=== PATIENT | female | born 1965 | race Caucasian/White ===

== ENCOUNTER → 2019-10-21 15:36 | Outpatient (CLI) | payer OTHER, SELFPAY ==
--- NOTE | ~2019-10-21 | CT_ITS ---
EXAMINATION: CT abdomen pelvis wo con EXAM DATE: 10/21/2019 15:54 INDICATION: Panniculitis. History cholecystectomy. TECHNIQUE: Spiral CT of the abdomen and pelvis was performed without contrast. Axial, coronal and s agittal images were reviewed. The dose-length product (DLP) for this examination was 1128.14 mGy-cm. The exposure was tailored according to patient size (auto mA exposure control), and iterative recon struction (ASIR) was used as additional dose reduction technique. There is no prior study for compar allyson. FINDINGS: The liver, spleen, adrenal glands and pancreas are unremarkable. There are cholecystectomy clips. There is no nephrolithiasis or hydronephrosis. The uterus is unremarkable. The bladder i s unremarkable. There is no mesenteric, retroperitoneal or pelvic lymphadenopathy. The appendix is normal. There are 2 duodenal diverticula measuring 2 and 3 cm. There is expected am ount of colonic stool. No free intraperitoneal gas. The heart is normal in size. There are no pe ricardial or pleural effusions. The lung bases are unremarkable. The bones are unremarkable. IMPRESSION: 1. No acute intra-abdominal findings. 2. Duodenal diverticula. Reviewed, dictated and finalized at location A. L ADMINISTRATIVE ASSISTANT
== END ==
PROVIDERS: Visit Provider Surgery Plastic and Reconstructive Surgery
DX: M79.3 Panniculitis, unspecified (principal); K57.10 Diverticulosis of small intestine without perforation or abscess without bleeding
CPT/HCPCS: 74176

== ENCOUNTER 2020-01-19 00:07 | Outpatient (CLI) | payer OTHER, SELFPAY ==
[2020-01-19 17:43] LABS: SARS-CoV-2 RNA PCR Negative
== END 2020-01-19 00:08 | disposition home or self-care (01) ==
LOC: ANHCOVIDDT 00:07
PROVIDERS: Visit Provider Surgery Plastic and Reconstructive Surgery
DX: Z01.818 Encounter for other preprocedural examination (principal); Z11.59 Encounter for screening for other viral diseases
CPT/HCPCS: 87635; C9803; U0003

== ENCOUNTER 2020-01-19 09:10 | Outpatient (CLI) | payer SELFPAY ==
--- NOTE | 2020-01-19 09:12 | ECG_ITS ---
Measurements Intervals [place] Rate: 55 P: 16 NV: 192 QRS: -8 QRSD: 92 T: 25 QT: 442 QTc: 425 Interpretive Statements SINUS BRADYCARDIA POOR R WAVE PROGRESSION, ANTERIOR LEADS BORDERLINE ST-T WAVE ABNORMALITY- ANTERIOR LEADS BORDERLINE ECG Electronically Signed On 01-19-2020 9:58:11 CDT by Nael Faustin D.O.
== END 2020-01-19 09:11 | disposition home or self-care (01) ==
LOC: ANHSURGERY 09:12
PROVIDERS: PCP Family Medicine; Visit Provider Surgery Plastic and Reconstructive Surgery
DX: I10 Essential (primary) hypertension (principal)
CPT/HCPCS: 93005

== ENCOUNTER 2020-01-21 00:46 | Day surgery (SDC) | payer OTHER, SELFPAY ==
[2020-01-07 13:21] VITALS: BMI 38.0
[2020-01-21] VITALS (17 sets, daily range): BP systolic 116–159; BP diastolic 67–89; PULSE 60–80; RESP 10–20; TEMP 36.2–37.1; O2SAT 86–100
--- NOTE | 2020-01-21 06:48 | WPDHPUPDATE1 ---
History and Physical Update Update Date/Time: 01/21/20 06:48 History and Physical has been reviewed, including an updated exam of the patient. There are NO changes in the patient's condition. Risks, benefits, and alternatives have been discussed and questions answered. Patient agrees to proceed with procedure.
--- NOTE | 2020-01-21 06:56 | PM.PROC ---
Procedure Note - Detailed Date of procedure: 01/21/20 Pre-op diagnosis: Panniculitis Post-op diagnosis: same Procedure performed: Panniculectomy Description of procedure: She was marked in the preoperative holding area with her verification. We discussed asymmetry she has. Limitations of the procedure. That this is a functional not a cosmetic surgery. Went over the risks, benefits, alternatives again. Answered all of her questions. She would like proceed. She was taken to the operating room placed supine on the operating room table. Anesthesia provided by anesthesiology and prepped and draped in a standard sterile fashion. Surgical time-out was taken. Stab incisions were made and used a tumescent solution. Once adequate time for hemostasis a 10 blade used to make the lower incision. I completed a wedge resection of the lower abdominal tissue without difficulty. Copious irrigated with saline solution and verified strict hemostasis. No hernias identified. I did place bilateral 19 Yaw drains. I closed in many layers to obliterate space using 2-0 Vicryl followed by 3-0 strata fix and fredy. Dressings were placed. She was woken and taken to the PACU without difficulty. All instrument sponge counts were correct at the end of the case. Anesthesia: GLMA Surgeon: Kee Mejia MD Estimated blood loss (mL): 20 Drains: Yes (Bilateral 10 Yaw) Pathology: none sent Complications: No immediate complications Condition: stable Disposition: PACU
[2020-01-21] MEDS: LACTATED RINGERS 1,000 ML 30 ML IV CONT (07:00)
--- NOTE | 2020-01-21 07:01 | P.PNAN_ITS ---
Anes - Initial Pre Proc Eval Procedure: Operation Date: 01/21/20 07:30 Proposed Procedures p Panniculectomy - Kee Mejia MD Date/Time: 01/21/20 07:01 Surgeon: Kee Mejia MD Pre Op Diagnosis: Panniculitis Patient Data Age: 54 Gender: F Height: 5 ft 9 in Weight: 116.8 kg Allergies Allergy/AdvReac Type Severity Reaction Status Date / Time amoxicillin Allergy Mild Rash Verified 01/07/20 13:18 Home Medications Medication Instructions Recorded Confirmed Type docusate sodium 100 mg capsule 100 mg PO DAILY #14 cap 01/03/20 Rx ondansetron HCl 4 mg tablet 4 mg PO Q8H #28 tablet 01/03/20 Rx oxycodone-acetaminophen 5 mg-325 1 tablet PO Q6H PRN #15 tablet 01/03/20 01/03/20 Rx mg tablet irbesartan 150 mg PO DAILY 01/07/20 01/07/20 History Patient hx anesthesia problems: none Family hx anesthesia problems: none [facility] Past Medical History Medical History (Updated 01/21/20 @ 07:01 by Edi Michaud MD) Anxiety Hypertension Surgical History Surgical History History of cholecystectomy 2003 History of tubal ligation 2005 Anes - Eval Final PreProcedure Day of Procedure 01/21/20 07:01 Patient weight: obese Heart: regular rate and rhythm Lungs: clear to auscultation Airway: Mallampati scale class II Neurological: alert and oriented Last oral intake: >/= 8 hours ASA classification: II Emergent: no Anesthetic plan: proceed Anesthesia type and monitoring: general ETT and standard monitoring Informed Consent: The patient's anesthetic plan and its attendant risks and benefits were discussed with the patient/family/POA. Questions were solicited and answers provided to the satisfaction of the patient/family/POA.
[2020-01-21 07:13] LABS: Urine Cotinine NEGATIVE
[2020-01-21] MEDS: SCOPOLAMINE 1.5 MG PATCH TRANSDERM (07:15)
[2020-01-21] MEDS: ceFAZolin 2 GM/D5W 50 ML 2 GM/50 ML BAG IVPB (07:20)
--- NOTE | 2020-01-21 10:27 | PC.NURSE ---
This patient, Layla Sagastume, was received from PACU on 01/21/20 at 1027. Patient/family oriented to unit policies and routines
[2020-01-21] MEDS: LACTATED RINGERS 1,000 ML 125 ML IV CONT (10:39)
[2020-01-21] MEDS: MORPHINE SULFATE 2 MG/ML INJ IV PUSH (10:43)
[2020-01-21] MEDS: carisoprodoL 350 MG TABLET PO ×2 (13:02→18:30)
[2020-01-21] MEDS: DOCUSATE SODIUM 100 MG CAPSULE PO (22:49)
[2020-01-21] MEDS: ENOXAPARIN 40 MG/0.4 ML SYRINGE SUB-Q (22:50)
[2020-01-22] MEDS: carisoprodoL 350 MG TABLET PO ×3 (00:30→12:10)
[2020-01-22 03:46] VITALS: BP 125/69; PULSE 58; RESP 20; TEMP 35.9; O2SAT 97
--- NOTE | 2020-01-22 08:09 | WPDANESPN ---
Anes - Prog Note Post-Op Date/Time: 01/22/20 08:09 Cardiovascular status: normal Respiratory status: normal Airway patency: baseline Mental status: baseline Post-Op hydration status: normal Vital Signs: Last Vital Signs Temp 35.9 C L 01/22/20 03:46 Pulse 58 L 01/22/20 03:46 Resp 20 01/22/20 03:46 BP 125/69 01/22/20 03:46 Pulse Ox 97 01/22/20 03:46 I/O: Intake & Output 01/21/20 01/22/20 01/22/20 23:59 07:59 15:59 Intake Total 1550 Output Total 615 610 Balance 935 -610 Post-procedural complaints: none Patient Feedback: Patient satisfied with anesthetic care.
--- NOTE | 2020-01-22 08:18 | WPDPN ---
Progress Note: A&P Assessment and Plan (1) Panniculitis: Code(s): M79.3 - Panniculitis, unspecified Status: Acute Assessment and Plan: She is doing very well after panniculectomy. Will discharge home. Follow up in 2 weeks. Today we had a lengthy conversation about the care. Wound a great detail and what monitor for. Made sure answered all of her questions to her satisfaction today. She understands we are always available even after discharge if she has any questions or concerns as well. Explained to her shortness of breath, chest pain, or other medical emergency proceed to the emergency room/dial 911. She understands the keep us updated with drain outputs and will call with any questions or concerns in the meantime. (2) History of weight loss: Code(s): Z87.898 - Personal history of other specified conditions Status: Acute (3) History of cholecystectomy: Code(s): Z90.49 - Acquired absence of other specified parts of digestive tract Status: Acute (4) Hypertension: Code(s): I10 - Essential (primary) hypertension Status: Acute (5) Anxiety: Code(s): F41.9 - Anxiety disorder, unspecified Status: Acute Review of Systems Review of Systems: All systems reviewed & are unremarkable except as noted in HPI and below Exam Narrative: Exam Narrative: Abdomen is healing well. There is no signs of infection. No hematoma. No seroma. Drains are already serosanguineous. No calf tenderness. Negative Homans. SCDs are not on. Const: General: comfortable, no acute distress, alert and awake; No acute distress Orientation/consciousness: oriented to person HENMT: Head: normal to inspection Ears: external ears normal General nose exam: Normal external nose present Face and sinus: normal facial exam Eyes: General: appearance normal, both eyes and all related structures Periorbital: periorbital findings normal Eyelids: eyelids normal Conjunctivae: conjunctivae normal Neck: Neck: normal visual inspection Chest: Chest palpation & inspection: normal inspection of the chest Resp: Effort & Inspection: normal respiratory effort and able to speak in complete sentences GI: Inspection: normal to inspection Neuro: General: oriented to person Psych: Appearance: grossly normal Mental Status: mental status grossly normal Objective Data Vital Signs Vital Signs: Vital Signs - 24 hr 01/21/20 09:20 01/21/20 09:30 01/21/20 09:45 Temperature 36.3 C L 36.2 C L Pulse Rate 80 76 77 Respiratory Rate 15 12 10 L Blood Pressure 146/86 H 153/89 H 138/87 Pulse Oximetry 95 99 95 01/21/20 10:00 01/21/20 10:16 01/21/20 10:30 Temperature Pulse Rate 69 69 Respiratory Rate 13 12 Blood Pressure 154/86 H 142/88 H Pulse Oximetry 95 95 86 L 01/21/20 10:37 01/21/20 10:45 01/21/20 11:00 Temperature 36.8 C Pulse Rate 69 67 67 Respiratory Rate 16 16 16 Blood Pressure 147/89 H 159/88 H 159/89 H Pulse Oximetry 94 86 L 100 01/21/20 11:30 01/21/20 12:00 01/21/20 13:00 Temperature Pulse Rate 70 72 60 Respiratory Rate 16 16 16 Blood Pressure 148/79 H 148/80 H 148/81 H Pulse Oximetry 92 86 L 94 01/21/20 14:00 01/21/20 16:15 01/21/20 18:38 Temperature 37.1 C 36.4 C L 36.4 C Pulse Rate 67 67 70 Respiratory Rate 16 18 20 Blood Pressure 147/83 H 130/83 134/88 Pulse Oximetry 98 93 97 01/21/20 23:00 01/22/20 03:46 Temperature 36.8 C 35.9 C L Pulse Rate 60 58 L Respiratory Rate 16 20 Blood Pressure 116/67 125/69 Pulse Oximetry 100 97 Intake/Output Intake/Output: Intake & Output 01/19/20 01/20/20 01/21/20 01/22/20 23:59 23:59 23:59 23:59 Intake Total 2020 Output Total 1015 610 Balance 1005 -610 Meds/Results Medications: Active Medications Generic Name Dose Route Start Last Admin Trade Name Freq PRN Reason Stop Dose Admin Carisoprodol 350 mg 01/21/20 12:00 01/22/20 05:55 Soma PO 350 mg Q6HR IWLMA Administration D
--- NOTE | 2020-01-22 08:21 | PM.DS ---
DS: Admitting Diagnosis Admitting Diagnosis Admitting Diagnosis: Panniculitis DS: Discharge Diagnosis Discharge Diagnosis (1) Panniculitis: Code(s): M79.3 - Panniculitis, unspecified Status: Acute Assessment and Plan: Will discharge home. Follow up in 2 weeks. Keep us updated with drain outputs. Call with any questions or concerns. (2) S/P panniculectomy: Code(s): Z98.890 - Other specified postprocedural states Status: Acute (3) Hypertension: Code(s): I10 - Essential (primary) hypertension Status: Acute (4) Anxiety: Code(s): F41.9 - Anxiety disorder, unspecified Status: Acute (5) History of weight loss: Code(s): Z87.898 - Personal history of other specified conditions Status: Acute (6) History of cholecystectomy: Code(s): Z90.49 - Acquired absence of other specified parts of digestive tract Status: Acute DS: Summary Time Spent with Patient Time attestation: Total time spent providing and/or coordinating discharge services: Exam Narrative: Exam Narrative: Abdomen is healing well. There is no signs of infection. No hematoma. No seroma. Drains are already serosanguineous. No calf tenderness. Negative Homans. SCDs are not on. Const: General: comfortable, no acute distress, alert and awake; No acute distress Orientation/consciousness: oriented to person HENMT: Head: normal to inspection Ears: external ears normal General nose exam: Normal external nose present Face and sinus: normal facial exam Eyes: General: appearance normal, both eyes and all related structures Periorbital: periorbital findings normal Eyelids: eyelids normal Conjunctivae: conjunctivae normal Neck: Neck: normal visual inspection Chest: Chest palpation & inspection: normal inspection of the chest Resp: Effort & Inspection: normal respiratory effort and able to speak in complete sentences GI: Inspection: normal to inspection Neuro: General: oriented to person Psych: Appearance: grossly normal Mental Status: mental status grossly normal Discharge Plan Discharge Patient Disposition: Home, Self-Care Discharge Instructions: Remove the Scopolamine patch that was placed behind your ear in 72 hours or less. Wash your hands after touching.POST OPERATIVE DISCHARGE INSTRUCTIONS FOR Panniculectomy KEE MEJIA M.D. [facility] [address] [place] [address] [address] for 24 hours after anesthesia and while you are taking pain medication. Take all prescribed medication as directed Diet as tolerated. No lifting or activity that raises blood pressure for 48 hours. Regular walking / ambulation. No showering until directed to. Once you shower do not take pain medication before showering as the combination of medication and heat may cause you to feel dizzy or pass out. No pools or tubs for 2 weeks. Call with any questions or concerns. Nurses will teach drain care. Keep us updated with drain outputs. Dressing Care: May wash on 01/23/2020. If you have any questions or concerns, please call the office . If it is after hours you will be directed to the allergist/pediatric pulmonologist exchange. Shortness of breath, chest pain, or other medical emergency dial 911 / proceed to the Emergency Room. Follow-up/Referrals: Kee Mejia MD [Physician] - 2 Weeks (Keep us updated with drain outputs so we may see you sooner for drain removal if possible.) Discharge Medications: Continued ondansetron HCl [Zofran] 4 mg tablet 4 mg PO Q8H Qty: 28 RF: 0 docusate sodium [Colace] 100 mg capsule 100 mg PO DAILY Qty: 14 RF: 0 oxycodone-acetaminophen [Percocet] 5-325 mg tablet 1 tablet PO Q6H PRN (Reason: pain) Qty: 15 RF: 0 irbesartan 150 mg tablet 150 mg PO DAILY RF: 0
[2020-01-22 08:45] VITALS: BP 128/69; PULSE 57; RESP 18; TEMP 36.5
[2020-01-22] MEDS: DOCUSATE SODIUM 100 MG CAPSULE PO (08:46)
--- NOTE | 2020-01-22 10:22 | PC.NURSE ---
Discharge instructions given to pt. including when to make appt. with Dr. Mejia. Pt. verbalized how to care for self and SHARIFA drains. No questions or concerns voiced. Very pleasant and cooperative.
--- NOTE | 2020-01-22 13:36 | PC.NURSE ---
Abdominal dressing changed due to complete saturation around SHARIFA drains with shadow drainage noted on rest of dressing. Pt. tolerated procedure well. SHARIFA drains intact and draining to closed suction. Staple remover and steri strips sent with pt. and instructed to take to appt. in 2 weeks. Pt. verbalized understanding.
== END 2020-01-22 13:52 | disposition home or self-care (01) ==
LOC: ANHSURGERY 06:59 → ANHIMU 10:21 → ANHOB2 10:32
PROVIDERS: PCP Family Medicine; Visit Provider Surgery Plastic and Reconstructive Surgery
PROC: 0JB80ZZ Excision of Abdomen Subcutaneous Tissue and Fascia, Open Approach (ICD-10-PCS; CPT 15830; principal; 2020-01-21 07:30)
DX: M79.3 Panniculitis, unspecified (principal); I10 Essential (primary) hypertension; F41.9 Anxiety disorder, unspecified; E66.9 Obesity, unspecified; Z68.37 Body mass index [BMI] 37.0-37.9, adult; Z79.899 Other long term (current) drug therapy
CPT/HCPCS: 15830; 36415; 80307; 99199; A9270; J0131; J0171; J0330; J0690; J1100; J1650; J2250; J2270; J2405; J2704; J3010; J7120